=== PATIENT | female | born 1950 | race Caucasian/White ===

== ENCOUNTER 2018-02-07 05:51 | Day surgery (SDC) | payer MEDICARE ==
[2018-02-07] MEDS ORDERED: DIPRIVAN 200 MG/20 ML IV ONE (05:52)
[2018-02-07] MEDS ORDERED: Lactated Ringers 1,000 ML IV SCH (06:30)
[2018-02-07 08:41] VITALS: O2SAT 96
[2018-02-07 08:54] VITALS: PULSE 73
[2018-02-07 09:19] VITALS: BP 145/78
--- NOTE | 2018-02-07 13:09 | OP ---
SURGERY DATE/TIME: 02/07/2018 0751 PREOPERATIVE DIAGNOSIS: Right lower quadrant abdominal pain and cecal mass on CT scan. POSTOPERATIVE DIAGNOSIS: Cecal mass, two small polyps in the transverse colon and sigmoid diverticulosis. PROCEDURE: Colonoscopy with biopsy. SURGEON: Dr. Woody. ANESTHESIA: MAC. Medications given by anesthesia department. HISTORY: The patient is a 68 year-old white female presenting now for colonoscopic evaluation after having had complaints of right lower quadrant abdominal pain and CT scan concerning for mass in the cecum. The patient was felt the need to have endoscopic evaluation. She was appraised of the risks of the procedure including the risk of perforation, phlebitis, untoward reaction to medication, bleeding and missed lesions. The patient verbalized her understanding and desired to have the procedure performed. DESCRIPTION OF PROCEDURE: The patient was given the medications by the anesthesia department. She had continuous pulse oximetry, ECG monitoring, intermittent blood pressure monitoring and tidal CO2 monitoring during the examination. She was placed in the left lateral decubitus position. A digital rectal examination was performed and revealed normal anal sphincter tone and no masses. The flexible Olympus pediatric colonoscope was used to intubate the rectum. A view of the colon was developed sequentially to the cecum where a circumferential ulcerating mass was noted which was firm this is biopsied and is quite friable and easy to bleed. As the scope was withdrawn towards the transverse colon again, we noted two small polyps and these were biopsied in the usual cold biopsy technique to determine the nature of the lesions. There was also noted to be sigmoid diverticulosis in the colon. No other mucosal lesions being encountered the scope was removed from the patient who tolerated the procedure well and was sent back to OP recovery in good condition. The prep was noted to be fair to good.
== END 2018-02-07 09:15 | disposition home or self-care (01) ==
LOC: SDC 05:51
PROVIDERS: ATTEND Family Medicine
DX: K63.89 Other specified diseases of intestine (principal); K63.5 Polyp of colon; K57.32 Diverticulitis of large intestine without perforation or abscess without bleeding; I25.10 Atherosclerotic heart disease of native coronary artery without angina pectoris
CPT/HCPCS: 88305; J2704

== ENCOUNTER 2018-02-24 10:19 | Inpatient (IN) | payer MEDICARE ==
--- NOTE | 2018-02-21 12:25 | HP ---
DATE OF SURGERY: 02/24/2018 ANTICIPATED PROCEDURE: Right hemicolectomy. HISTORY OF PRESENT ILLNESS: Large cecal mass presents for hemicolectomy. PAST MEDICAL HISTORY: ALLERGIES: MORPHINE. MEDICATIONS: Baby aspirin, metoprolol, atorvastatin hydrochlorothiazide. PAST SURGICAL HISTORY: Cholecystectomy. Hysterectomy. SOCIAL HISTORY: One pack per day. ETOH negative. FAMILY HISTORY: Negative. PHYSICAL EXAMINATION: VITAL SIGNS: Normal. CHEST: Clear. COR: Regular. ABDOMEN: No palpable organomegaly or mass. IMPRESSION: Cecal mass, two polyps in the transverse colon, sigmoid diverticulosis on examination by Dr. Woody. Circumferentiated ulcerated mass which was firm. PLAN: Right hemicolectomy.
[~2018-02-24 10:19] MED LIST: ENTEREG 12 MG PO SCH; Lactated Ringers 1,000 ML IV ONE; MEFOXIN 2 GM PREMIX** 2 GM/50 ML ML IV SCH
[2018-02-24] MEDS ORDERED: MEFOXIN 2 GM PREMIX** 2 GM/50 ML ML IV ONE (10:40)
[2018-02-24] MEDS ORDERED: Lactated Ringers 1,000 ML IV ONE ×2 (10:41→18:18)
[2018-02-24] MEDS ORDERED: Lactated Ringers 1,000 ML IV SCH (11:00)
[2018-02-24 12:32] LABS: ABO TYPING A; Antibody Screen NEGATIVE (NEGATIVE); RH TYPING POSITIVE
[2018-02-24] MEDS ORDERED: DILAUDID 2 MG INJECTION ONE (19:16)
[2018-02-24] MEDS ORDERED: SUBLIMAZE 100 MCG/2 ML ONE (19:16)
[2018-02-24] MEDS ORDERED: DILAUDID 1 MG/1ML PCA ONE (19:51)
[2018-02-24] MEDS ORDERED: D5W/0.45NS W/ 20mEq KCl 1000 ML 1,000 ML IV ONE (20:06)
[2018-02-24] MEDS: D5W/0.45NS W/ 20mEq KCl 1000 ML 1,000 ML IV SCH (20:30)
[2018-02-24] MEDS: DILAUDID 1 MG/1ML PCA IV PRN (20:40)
[2018-02-24] MEDS ORDERED: TYLENOL 325 MG PO PRN (20:59)
[2018-02-24] MEDS ORDERED: Zofran 4 MG/2 ML VIAL IV PRN (21:00)
[2018-02-24 22:50] LABS: Appearance CLEAR (CLEAR); Bilirubin NEGATIVE (NEGATIVE); Blood 250 Ery/ul (0-5); Glucose NEGATIVE (NEGATIVE); Ketones SMALL (NEGATIVE); Leukocyte Esterase NEGATIVE (NEGATIVE); Nitrite NEGATIVE (NEGATIVE); Protein,Urine Dip TRACE (Negative); Specific Gravity 1.025 (1.005-1.025); Urobilinogen NORMAL mg/dL (0-1)
[2018-02-24 22:51] LABS: Bacteria FEW /HPF (NEGATIVE); Epithelial Cells MODERATE /HPF (FEW); Hyaline Casts 0-2 /LPF (0-2)
[2018-02-25 05:52] LABS: BASOPHIL % 0.1 % (0.0-0.4); Basophil (Absolute #) 0.02 (0-0.4); Eosinophil % 0.2 % (0.00-5.0); Eosinophil (Absolute #) 0.03 (0-0.5); Granulocyte Absolute (ANC) 12.56 (1.4-6.9); Granulocytes % 82.9 % (36.0-66.0); Hematocrit 31.7 % (35-47); Hemoglobin 9.9 gm/dl (12.0-16.0); Lymphocyte (Absolute #) 1.29 (1.0-4.6); Lymphocytes % 8.5 % (24.0-44.0); Mean Cell Volume 79.4 fl (78-100); Mean Corpuscular Hemoglobin 24.8 pg (26-32); Mean Corpuscular Hgb Concent. 31.2 g/dl (32-36); Mean Platelet Volume 9.6 fl (6-9.5); Monocyte (Absolute #) 1.25 (0.0-1.3); Monocytes % 8.3 % (0.0-12.0); Platelet Count 381 K/mm3 (150-450); Red Blood Count 3.99 M/mm3 (4.1-5.4); Red Cell Distribution Width 17.7 % (11.5-14.0); White Blood Count 15.2 K/mm3 (4.0-10.5)
[2018-02-25 06:12] LABS: ANION GAP 11.7 MEQ/L (5-15); BLOOD UREA NITROGEN 8 mg/dL (7-17); CHLORIDE 103 mmol/L (98-107); Calcium 8.9 mg/dL (8.4-10.2); Carbon Dioxide 26 mmol/L (22-30); Creatinine 1 0.84 mg/dL (0.52-1.04); Glucose 159 mg/dL (74-106); Potassium 4.1 mmol/L (3.5-5.1); SODIUM 137 mmol/L (137-145)
[2018-02-25] MEDS: D5W/0.45NS W/ 20mEq KCl 1000 ML 1,000 ML IV SCH ×2 (06:26→17:43)
[2018-02-25] MEDS ORDERED: PHARMACY DOSING REQUEST MC ONE ×2 (07:33→07:34)
[2018-02-25] MEDS ORDERED: MEFOXIN 1 Gm/ D5W 50 Ml** 1 G/50 ML ML IV ONE (07:38)
[2018-02-25] MEDS ORDERED: MEFOXIN 1 Gm/ D5W 50 Ml** 1 G/50 ML ML IV SCH ×2 (08:00→13:30)
--- NOTE | 2018-02-25 08:18 | OP ---
SURGERY DATE/TIME: 02/24/2018 171 PREOPERATIVE DIAGNOSIS: Cecal cancer. POSTOPERATIVE DIAGNOSIS: Cecal cancer eroding into the right lateral abdominal wall with major extension of about 4 inches. PROCEDURES: 1) Right hemicolectomy. 2) En bloc resection of 5 inch circular area of abdominal wall including peritoneum/preperitoneal fat, external and internal oblique muscles. SURGEON: Migule Clarke M.D. ANESTHESIA: General. COMPLICATIONS: None. ESTIMATED BLOOD LOSS: 300 cc. DRAINS: None. CONDITION: Stable. Primary anastomosis. INDICATION: The patient has biopsy-proven cancer of the right side. DESCRIPTION OF PROCEDURE: Taken to surgery. General anesthetic. Routine prep and drape. She is morbidly obese. She has had a previous midline incision for gallbladder disease. There were some adhesions and these were taken down. A right transverse incision being made and over to the right side with her asleep you could clearly feel the tumor. The tumor was avoided and at this time the fascia was taken around the tumor down through the retroperitoneal fat and taking the transversalis and internal oblique muscle. At this time the tumor was clear and the right colon was reflected. The duodenum was preserved. The retroperitoneum preserved. No suggestion of being in the plane with the ureter. The small bowel then mobilized caudad 4 inches down on the ileum. The area was picked up and taken with TARA just in the midline. Area was taken of the transverse colon. The omentum had been freed up. A formal right hemicolectomy was performed through the mesentery predominantly with LigaSure with the base pedicle double clamped and tied with suture #0 PDS. Specimen delivered off the field. It was subsequently opened. It was totally circumferential. It was large. It was thick. It was nearly the size of an orange and it was perforating out the lateral side wall into this musculature which was left intact on the specimen for pathology. Findings discussed with the family in the waiting room subsequently. The field was dry. The right lateral side wall residual fascia closed meticulously. The incisions broken up in thirds. The lateral third, the middle third was almost intact. The medial third was clearly intact best portion of the closure. Subcutaneous tissue generously irrigated. Skin closed with gianfranco. Sterile dressing applied. Abdominal binder applied. Findings discussed with family in the waiting room. Anastomosis had been TARA clipping off the two corners firing very nicely. No bleeding. Closed with a contour. Mesenteric defect closed with 3-0 PDS running. The anastomosis was in the midline but with the mobilization that had occurred it moved over to the right lateral wall at the end of the case. The small bowel was laid back in organized fashion and the omentum brought down. The patient tolerated the procedure satisfactorily. Approximately 300 cc blood loss.
[2018-02-25] MEDS ORDERED: FEVERALL 650 MG RC PRN (08:34)
[2018-02-25 08:55] LABS: Hematocrit 31.7 % (35-47); Hemoglobin 9.8 gm/dl (12.0-16.0); Mean Cell Volume 79.3 fl (78-100); Mean Corpuscular Hemoglobin 24.5 pg (26-32); Mean Corpuscular Hgb Concent. 30.9 g/dl (32-36); Mean Platelet Volume 9.5 fl (6-9.5); Platelet Count 392 K/mm3 (150-450); Red Cell Distribution Width 17.6 % (11.5-14.0); White Blood Count 13.9 K/mm3 (4.0-10.5)
--- NOTE | 2018-02-25 09:12 | HP ---
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 CONSULTANTS: Dr. Clarke. PROCEDURES: Right hemicolectomy. HISTORY OF PRESENT ILLNESS: The patient is a 68 year-old white female who had abnormal CT scan prompting a colonoscopy at which time cecal cancer was found with biopsy proven to be adenocarcinoma. The patient was brought into the hospital to have right hemicolectomy performed. PAST MEDICAL/SURGICAL HISTORY: Otherwise significant for hypertension and hyperlipidemia. PHYSICAL EXAMINATION: Revealed an obese white female in no obvious distress upon admission. Her vital signs on admission initially showed blood pressure to be 142/76, respiratory rate 18, heart rate 78. O2 saturation 96%. HEENT: Normocephalic, atraumatic. Pupils equal round reactive to light. Extraocular movements intact. Oropharynx is pink and moist. NECK: Supple without lymphadenopathy, thyromegaly or JVD. CHEST: Clear to auscultation. HEART: Regular rate and rhythm without murmurs, rubs or gallops. ABDOMEN: Soft. No palpable masses were felt. EXTREMITIES: Without clubbing, cyanosis or edema. NEUROLOGIC: The patient is alert and oriented x3. LAB DATA AND TESTS: The patient had a Cardiolite stress test prior to the evaluation most recently performed on 06/19/2016 showing no evidence of pharmacologic induced reversible ischemia and ejection fraction of 67%. The patient did receive cardiology clearance for the procedure. She was noted to be A-positive on her blood type. Her metabolic panel showed a fasting sugar of 107, BUN 16, creatinine 0.88. The electrolytes were normal. Her hemoglobin was noted to be low at 9.6. Her white blood cell count 10,600. Her PLT count was normal at 393,000. ASSESSMENT: A patient with colon cancer presenting now for hemicolectomy to be performed. We have been asked to follow the patient medically after her procedure.
[2018-02-25 09:29] LABS: ALBUMIN 3.3 g/dL (3.5-5.0); ALKALINE PHOSPHATASE 56 U/L (38-126); ANION GAP 10.4 MEQ/L (5-15); BLOOD UREA NITROGEN 8 mg/dL (7-17); CHLORIDE 105 mmol/L (98-107); Calcium 8.7 mg/dL (8.4-10.2); Carbon Dioxide 27 mmol/L (22-30); Glucose 152 mg/dL (74-106); Potassium 4.2 mmol/L (3.5-5.1); SGOT/AST 34 U/L (14-36); SGPT/ALT 9 U/L (0-35); SODIUM 138 mmol/L (137-145); Total Protein 6.4 g/dL (6.3-8.2)
[2018-02-25] MEDS: ENTEREG 12 MG PO SCH ×2 (11:11→22:58)
[2018-02-25] MEDS: LOPRESSOR 5 MG/5 ML INJECTION IV SCH ×2 (11:12→22:43)
[2018-02-25] MEDS: ENOXAPARIN SODIUM SQ SCH (11:14)
[2018-02-25] MEDS ORDERED: Zofran 4 MG/2 ML VIAL IV ONE (12:21)
[2018-02-25] MEDS ORDERED: DIPRIVAN 200 MG/20 ML IV ONE (12:21)
[2018-02-25] MEDS ORDERED: Zemuron 100 MG/10 ML IJ ONE (12:21)
[2018-02-25] MEDS ORDERED: BRIDION 200MG/2ML IV ONE (12:21)
[2018-02-25] MEDS ORDERED: Versed 2 MG/2 ML Injection IV ONE (12:28)
[2018-02-25] MEDS ORDERED: SUBLIMAZE 100 MCG/2 ML IV ONE (12:28)
[2018-02-25] MEDS ORDERED: SUBLIMAZE 250 MCG/5 ML IJ ONE (12:28)
[2018-02-25] MEDS: MEFOXIN 1 Gm/ D5W 50 Ml** 1 G/50 ML ML IV SCH ×2 (13:11→18:38)
[2018-02-25] MEDS: INTRALIPID 20% 250 ML 250 ML, TPN Electrolytes 40 ML, Multitrace-4 Conc Vial 1 ML*** 1 ... IV SCH ×5 (14:44)
[2018-02-25] MEDS: DILAUDID 1 MG/1ML PCA IV PRN (18:28)
[2018-02-26] MEDS: D5W/0.45NS W/ 20mEq KCl 1000 ML 1,000 ML IV SCH (04:57)
[2018-02-26 06:36] LABS: ALKALINE PHOSPHATASE 51 U/L (38-126); ANION GAP 11.9 MEQ/L (5-15); BLOOD UREA NITROGEN 9 mg/dL (7-17); CHLORIDE 103 mmol/L (98-107); Calcium 8.7 mg/dL (8.4-10.2); Carbon Dioxide 26 mmol/L (22-30); Creatinine 1 0.65 mg/dL (0.52-1.04); Glucose 166 mg/dL (74-106); SGOT/AST 23 U/L (14-36); SGPT/ALT 9 U/L (0-35); SODIUM 137 mmol/L (137-145); Total Protein 5.9 g/dL (6.3-8.2)
[2018-02-26 06:45] LABS: Granulocyte Absolute (ANC) 12.99 (1.4-6.9); Hematocrit 28.2 % (35-47); Hemoglobin 8.6 gm/dl (12.0-16.0); Mean Cell Volume 79.7 fl (78-100); Mean Corpuscular Hgb Concent. 30.5 g/dl (32-36); Mean Platelet Volume 9.6 fl (6-9.5); Platelet Count 359 K/mm3 (150-450); Red Blood Count 3.54 M/mm3 (4.1-5.4); Red Cell Distribution Width 17.4 % (11.5-14.0); White Blood Count 16.9 K/mm3 (4.0-10.5)
[2018-02-26 06:52] LABS: Mean Corpuscular Hemoglobin 24.2 pg (26-32)
[2018-02-26] MEDS: PROTONIX 40 MG IV IV SCH (11:11)
[2018-02-26] MEDS: LOPRESSOR 5 MG/5 ML INJECTION IV SCH ×2 (11:11→22:31)
[2018-02-26] MEDS: ENTEREG 12 MG PO SCH ×2 (11:12→22:32)
[2018-02-26] MEDS: ENOXAPARIN SODIUM SQ SCH (11:12)
[2018-02-26 11:28] LABS: Lymphocytes 26 % (24-44); Monocyte 2 % (0.0-12.0); Neutrophils 72 % (36.0-66.0); Total Cells Counted 100
[2018-02-26 11:29] LABS: ANISOCYTOSIS 2+; Platelet Estimate NORMAL (NORMAL); Poikilocytosis 2+; Polychromasia 1+
[2018-02-26] MEDS ORDERED: NARCAN 2 MG/2 ML IV PRN (12:26)
[2018-02-26] MEDS: Sodium Chloride 0.9% 500 ML 500 ML IV SCH (12:35)
[2018-02-26] MEDS: INTRALIPID 20% 250 ML 250 ML, TPN Electrolytes 40 ML, Multitrace-4 Conc Vial 1 ML*** 1 ... IV SCH ×5 (14:30)
[2018-02-27] MEDS: DILAUDID 1 MG/1ML PCA IV PRN (03:55)
--- NOTE | 2018-02-27 09:39 | PCM.NOTE ---
Date and Time: 02/26/18 1233 Subjective Assessment: late entry seen 02/27/18 at 12:00 she was starting to feel better her main complaint was the ng making it hard to move. pain was controlled with floor renovator and she was starting to ambulate no flatulance Objective Exam General Appearance: obese Neurologic Exam: alert, oriented x 3, cooperative Skin Exam: warm, dry, pale Eye Exam: pale conjunctivae Ears, Nose, Throat Exam: moist mucous membranes Neck Exam: non-tender, supple Respiratory Exam: lungs clear Cardiovascular Exam: normal heart sounds Gastrointestinal/Abdomen Exam: soft, tenderness OBJECTIVE DATA Vital Signs: Vital Signs - 24 hr Temp Pulse Resp BP Pulse Ox 02/27/18 08:00 97.8 F 80 18 131/63 94 L 02/27/18 04:00 98.7 F 82 17 123/61 92 L 02/27/18 03:55 92 L 02/27/18 02:00 92 L 02/26/18 23:45 98.5 F 87 17 134/57 92 L 02/26/18 22:00 94 L 02/26/18 20:14 94 H 18 93 L 02/26/18 20:00 98.7 F 90 17 140/67 94 L 02/26/18 16:00 98.3 F 83 18 149/71 94 L 02/26/18 12:00 97.9 F 78 18 133/64 94 L 02/26/18 09:45 77 22 95 Pain Assessment - Last Documented Pain Intensity 3 Pain Scale Used 0-10 Pain Scale Intake and Output: Intake & Output 02/24/18 02/25/18 02/26/18 02/27/18 11:59 11:59 11:59 11:59 Intake Total 877 2938 2762 Output Total 530 2050 1150 Balance 040 813 1200 Weight 108 kg 110 kg Lab Results: Lab Results-Last 24 Hours 02/26/18 Range/Units 06:00 Segmented Neutrophils 72 H (36.0-66.0) % Lymphocytes (Manual) 26 (24-44) % Monocytes (Manual) 2 (0.0-12.0) % Platelet Estimate NORMAL (NORMAL) RBC Morphology ABNORMAL Polychromasia 1+ Poikilocytosis 2+ Anisocytosis 2+ Assessment/Plan (1) Colon cancer Current Visit: Yes Status: Acute Qualifiers: Colon location: ascending Qualified Code(s): C18.2 - Malignant neoplasm of ascending colon Assessment & Plan: biopsy proven cecal mass adenocarcinoma surgical pathology pending with Dr. Clarke post op day 2 right hemicolectomy MERLINE bang with PPN pharmacy dosing diet per surgery floor renovator pain control and lovenox for dvt ppx ambulate in hallway discussed (2) S/P right hemicolectomy Current Visit: Yes Status: Acute Code(s): Z90.49 - ACQUIRED ABSENCE OF OTHER SPECIFIED PARTS OF DIGESTIVE TRACT (3) Essential hypertension Current Visit: Yes Status: Chronic Code(s): I10 - ESSENTIAL (PRIMARY) HYPERTENSION (4) Hyperlipidemia Current Visit: Yes Status: Chronic Code(s): E78.5 - HYPERLIPIDEMIA, UNSPECIFIED (5) Obesity Current Visit: Yes Status: Chronic Code(s): E66.9 - OBESITY, UNSPECIFIED
--- NOTE | 2018-02-27 09:40 | PCM.NOTE ---
Date and Time: 02/27/18 0939 Subjective Assessment: post op day 3 was feeling well yesterday but today the NG is really bothering her causing her pain in her nose and gagging with swallowing having some intermittent stabbing pain in the abdomen with no passing of flatulence yet. Objective Exam General Appearance: obese Neurologic Exam: alert, oriented x 3, cooperative Skin Exam: warm, dry, pale Eye Exam: pale conjunctivae, No scleral icterus Ears, Nose, Throat Exam: moist mucous membranes, other (NG left nare) Neck Exam: non-tender, supple Respiratory Exam: lungs clear Cardiovascular Exam: regular rate/rhythm, normal heart sounds, No edema Gastrointestinal/Abdomen Exam: soft, tenderness, distention, No normal bowel sounds (hypoactive bowel sounds) Extremity Exam: No calf tenderness, No pedal edema OBJECTIVE DATA Vital Signs: Vital Signs - 24 hr Temp Pulse Resp BP Pulse Ox 02/27/18 08:00 97.8 F 80 18 131/63 94 L 02/27/18 04:00 98.7 F 82 17 123/61 92 L 02/27/18 03:55 92 L 02/27/18 02:00 92 L 02/26/18 23:45 98.5 F 87 17 134/57 92 L 02/26/18 22:00 94 L 02/26/18 20:14 94 H 18 93 L 02/26/18 20:00 98.7 F 90 17 140/67 94 L 02/26/18 16:00 98.3 F 83 18 149/71 94 L 02/26/18 12:00 97.9 F 78 18 133/64 94 L 02/26/18 09:45 77 22 95 Pain Assessment - Last Documented Pain Intensity 3 Pain Scale Used 0-10 Pain Scale Intake and Output: Intake & Output 02/24/18 02/25/18 02/26/18 02/27/18 11:59 11:59 11:59 11:59 Intake Total 871 2938 2762 Output Total 666 2050 1150 Balance 138 932 6052 Weight 108 kg 110 kg Lab Results: Lab Results-Last 24 Hours 02/26/18 Range/Units 06:00 Segmented Neutrophils 72 H (36.0-66.0) % Lymphocytes (Manual) 26 (24-44) % Monocytes (Manual) 2 (0.0-12.0) % Platelet Estimate NORMAL (NORMAL) RBC Morphology ABNORMAL Polychromasia 1+ Poikilocytosis 2+ Anisocytosis 2+ Assessment/Plan (1) Colon cancer Current Visit: Yes Status: Acute Qualifiers: Colon location: ascending Qualified Code(s): C18.2 - Malignant neoplasm of ascending colon Assessment & Plan: biopsy proven cecal mass adenocarcinoma surgical pathology pending with Dr. 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
[2018-02-27] MEDS: PROTONIX 40 MG IV IV SCH (10:27)
[2018-02-27] MEDS: ENTEREG 12 MG PO SCH ×2 (10:27→22:24)
[2018-02-27] MEDS: ENOXAPARIN SODIUM SQ SCH (10:27)
[2018-02-27] MEDS: LOPRESSOR 5 MG/5 ML INJECTION IV SCH ×2 (10:27→22:25)
[2018-02-27] MEDS: Sodium Chloride 0.9% 500 ML 500 ML IV SCH (13:01)
[2018-02-27] MEDS: INTRALIPID 20% 250 ML 250 ML, TPN Electrolytes 40 ML, Multitrace-4 Conc Vial 1 ML*** 1 ... IV SCH ×5 (14:30)
[2018-02-28 06:06] LABS: Granulocyte Absolute (ANC) 9.46 (1.4-6.9); Hematocrit 28.5 % (35-47); Hemoglobin 8.9 gm/dl (12.0-16.0); Mean Cell Volume 78.9 fl (78-100); Mean Corpuscular Hgb Concent. 31.2 g/dl (32-36); Mean Platelet Volume 9.4 fl (6-9.5); Platelet Count 369 K/mm3 (150-450); Red Blood Count 3.61 M/mm3 (4.1-5.4); Red Cell Distribution Width 17.8 % (11.5-14.0); White Blood Count 13.1 K/mm3 (4.0-10.5)
[2018-02-28 06:25] LABS: Mean Corpuscular Hemoglobin 24.6 pg (26-32)
[2018-02-28 06:28] LABS: ALBUMIN 3.1 g/dL (3.5-5.0); ANION GAP 9.2 MEQ/L (5-15); BLOOD UREA NITROGEN 14 mg/dL (7-17); CHLORIDE 104 mmol/L (98-107); Calcium 8.8 mg/dL (8.4-10.2); Carbon Dioxide 27 mmol/L (22-30); Creatinine 1 0.64 mg/dL (0.52-1.04); Glucose 134 mg/dL (74-106); Potassium 3.8 mmol/L (3.5-5.1); SODIUM 136 mmol/L (137-145); Total Protein 6.1 g/dL (6.3-8.2)
[2018-02-28 08:23] LABS: BAND 1 % (0.0-2.0); Eosinophil 2 % (0.00-3.0); Lymphocytes 8 % (24-44); Monocyte 4 % (0.0-12.0); Neutrophils 85 % (36.0-66.0); Total Cells Counted 100
[2018-02-28 08:24] LABS: ANISOCYTOSIS 1+; Platelet Estimate NORMAL (NORMAL); Polychromasia RARE
[2018-02-28] MEDS: ENTEREG 12 MG PO SCH ×2 (09:55→21:02)
[2018-02-28] MEDS: LOPRESSOR 5 MG/5 ML INJECTION IV SCH ×2 (09:55→21:06)
[2018-02-28] MEDS: PROTONIX 40 MG IV IV SCH (09:56)
[2018-02-28] MEDS: ENOXAPARIN SODIUM SQ SCH (09:56)
[2018-02-28] MEDS: Sodium Chloride 0.9% 500 ML 500 ML IV SCH (13:41)
--- NOTE | 2018-02-28 13:46 | XRAY ---
Indication: History of colon cancer. Poor venous access. Long-term IV access and therapy. Informed consent obtained. Patient was placed on the fluoroscopic table in a supine position. Initial sonographic imaging of the right upper extremity was performed for localization of patent veins. The right upper extremity was then prepped and draped in sterile fashion. Tourniquet applied. 1% lidocaine plain used for local anesthesia. Using ultrasound guidance and a micropuncture needle, a basilic vein above the elbow was successfully percutaneously cannulized. A floppy tip 0.018 guidewire inserted. Tourniquet released. Needle was exchanged for a 5 Syriac dilator peel-away sheath catheter. Ultimately a 5 Syriac double-lumen PICC line was inserted over a longer 0.018 guidewire with the tip positioned in the SVC using fluoroscopic guidance. Guidewire removed. Both ports flushed with heparinized saline. Catheter was secured. Postoperative instructions and orders given. Patient discharged in good condition. Impression: Technically successful right upper extremity PICC line placement using ultrasound and fluoroscopic guidance. No immediate complications. Approximately 2 cc blood loss. Approximately 0.2 minute of fluoroscopy used. Catheter length is 42.5 cm.
--- NOTE | 2018-02-28 13:49 | XRAY ---
Indication: Ultrasound guidance for PICC line placement. Initial sonographic imaging of the right upper extremity was performed for localization of patent veins. A patent basilic vein identified above the elbow. Ultrasound guidance was then used for PICC line insertion. Full PICC line insertion is reported separately.
--- NOTE | 2018-02-28 13:56 | PCM.NOTE ---
Date and Time: 02/28/18 1349 Subjective Assessment: feeling much better today with NG out she has not tried any liquids yet. Dr. Ruffin rounded today and advanced her diet she has no nausea no flatulance no bm pain with moving in rlq Objective Exam General Appearance: no apparent distress, alert, obese Neurologic Exam: alert, oriented x 3, cooperative, normal mood/affect, nml cerebellar function, sensation nml, No motor deficits Skin Exam: normal color, warm, dry Eye Exam: PERRL, EOMI, eyes nml inspection Ears, Nose, Throat Exam: normal ENT inspection, pharynx normal, moist mucous membranes Neck Exam: normal inspection, non-tender, supple, full range of motion Respiratory Exam: normal breath sounds, lungs clear, No respiratory distress Cardiovascular Exam: regular rate/rhythm, normal heart sounds Gastrointestinal/Abdomen Exam: tenderness, mass, other (hypoactive bowel sounds) , No normal bowel sounds Extremity Exam: normal inspection, normal range of motion Back Exam: normal inspection, normal range of motion, No CVA tenderness, No vertebral tenderness Pelvic Exam: deferred Rectal Exam: deferred OBJECTIVE DATA Vital Signs: Vital Signs - 24 hr Temp Pulse Resp BP Pulse Ox 02/28/18 12:00 97 02/28/18 11:46 98.2 F 67 18 137/67 97 02/28/18 08:00 95 02/28/18 07:35 98.3 F 69 18 115/59 95 02/28/18 04:00 97.8 F 78 20 138/70 96 02/28/18 00:00 95 02/27/18 23:40 98.0 F 78 18 149/66 95 02/27/18 20:00 96 02/27/18 19:59 88 18 94 L 02/27/18 19:48 98.0 F 76 17 119/74 96 02/27/18 16:00 98.4 F 68 18 138/64 94 L Pain Assessment - Last Documented Pain Intensity 2 Pain Scale Used 0-10 Pain Scale Intake and Output: Intake & Output 02/26/18 02/27/18 02/28/18 03/01/18 11:59 11:59 11:59 11:59 Intake Total 2931 9262 2442 Output Total 2050 1150 1350 Balance 888 1612 1092 Weight 110 kg 119.5 kg 119.5 kg Lab Results: Lab Results-Last 24 Hours 02/28/18 02/28/18 02/28/18 Range/Units 05:00 05:00 05:30 WBC 13.1 H (4.0-10.5) K/mm3 RBC 3.61 L (4.1-5.4) M/mm3 Hgb 8.9 L (12.0-16.0) gm/dl Hct 28.5 L (35-47) % MCV 78.9 (78-100) fl MCH 24.6 L (26-32) pg MCHC 31.2 L (32-36) g/dl RDW 17.8 H (11.5-14.0) % Plt Count 369 (150-450) K/mm3 MPV 9.4 (6-9.5) fl Absolute Granulocytes 9.46 H (1.4-6.9) Segmented Neutrophils 85 H (36.0-66.0) % Band Neutrophils 1 (0.0-2.0) % Lymphocytes (Manual) 8 L (24-44) % Monocytes (Manual) 4 (0.0-12.0) % Eosinophils (Manual) 2 (0.00-3.0) % Platelet Estimate NORMAL (NORMAL) RBC Morphology ABNORMAL Polychromasia RARE Anisocytosis 1+ APTT 23.6 L (25.3-37.0) SECONDS Sodium 136 L (137-145) mmol/L Potassium 3.8 (3.5-5.1) mmol/L Chloride 104 (98-107) mmol/L Carbon Dioxide 27 (22-30) mmol/L Anion Gap 9.2 (5-15) MEQ/L BUN 14 (7-17) mg/dL Creatinine 0.64 (0.52-1.04) mg/dL Estimated GFR > 60.0 ML/MIN Glucose 134 H (74-106) mg/dL Calcium 8.8 (8.4-10.2) mg/dL Magnesium 2.1 (1.6-2.3) mg/dL Serum Total Protein 6.1 L (6.3-8.2) g/dL Albumin 3.1 L (3.5-5.0) g/dL Radiology Exams: Radiology Procedures Category Date Time Status GUIDE FOR VASCULAR ACCESS [US] Routine Exams 02/28/18 12:14 Completed PICC LINE PLACEMENT Urgent Exams 02/28/18 08:49 Completed Multi-Disciplinary Progress Notes: Multi-Disciplinary Progress Notes 02/28/18 13:06 Nutrition Note by Nellie Villar F/u Note: PPN con't @ 60cc/hour. Note also receiving a clear liquid diet; no intake noted. Labs 02/28 = glu 134, Na 136, alb 3.1, hgb 8.9, hct 28.5. Weight on adm 108 kg; 02/28 119.5 kg. + fluid balance 1092 mls. Recommend to con't with PPN and increase diet as patient tolerates. Will monitor and f/u prn. AMBIKA Pak Initialized on 02/28/18 13:06 - END OF NOTE 02/28/18 09:00 (created 02/28/18 10:35) Case Management Note by Noreen Waters REVIEWED DISCHARGE PLAN, CONTINUES TO PLAN FOR RETURN HOME TO PRE EPISODIC LEVEL OF [facility]. DENIES ADDNL NEEDS AT PRESENT. DID DISCUSS AND ENCOURAGE HHC SERVICES ON DISCHARGE. WILL FOLLOW FOR ALL DC NEEDS. Initialized on 02/28/18 10:35 - END OF NOTE Assessment/Plan (1) Colon cancer Current Visit: Yes Status: Acute Qualifiers: Colon location: ascending Qualified Code(s): C18.2 - Malignant neoplasm of ascending colon Assessment & Plan: biopsy proven cecal mass adenocarcinoma surgical pathology pending with Dr. 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
[2018-02-28] MEDS ORDERED: Heparin 1000 units/ml (10 Ml vial) 1,000 U in Sodium Chloride 0.9% 500 ML 500 ML IV ONE (16:22)
[2018-02-28] MEDS: NORCO 5/325 MG PO PRN (21:01)
[2018-03-01] MEDS: Sodium Chloride 0.9% 500 ML 500 ML IV SCH (06:04)
[2018-03-01] MEDS: ENOXAPARIN SODIUM SQ SCH (10:02)
[2018-03-01] MEDS: PROTONIX 40 MG IV IV SCH (10:03)
[2018-03-01] MEDS: ENTEREG 12 MG PO SCH (10:03)
[2018-03-01] MEDS: LOPRESSOR 5 MG/5 ML INJECTION IV SCH (10:03)
--- NOTE | 2018-03-01 12:36 | PCM.NOTE ---
Date and Time: 03/01/18 1234 Subjective Assessment: feeling better denny had 3 bm small amount eating some not hungry now having intermittent gas pains sharp throughout abdomen ambulating on her own in the room Objective Exam General Appearance: no apparent distress, alert, obese Neurologic Exam: alert, oriented x 3, cooperative, normal mood/affect Skin Exam: normal color, warm, dry Eye Exam: PERRL, EOMI, eyes nml inspection Ears, Nose, Throat Exam: normal ENT inspection, pharynx normal, moist mucous membranes Neck Exam: normal inspection, non-tender, supple, full range of motion Respiratory Exam: normal breath sounds, lungs clear, No respiratory distress Cardiovascular Exam: regular rate/rhythm, normal heart sounds Gastrointestinal/Abdomen Exam: soft (abdominal binder in place), normal bowel sounds, tenderness Pelvic Exam: deferred Rectal Exam: deferred OBJECTIVE DATA Vital Signs: Vital Signs - 24 hr Temp Pulse Resp BP Pulse Ox 03/01/18 11:49 98.0 F 93 H 18 125/87 99 03/01/18 06:56 97.5 F 62 18 125/63 99 03/01/18 04:00 97.9 F 71 20 148/78 97 03/01/18 00:00 97.4 F 68 22 122/69 96 02/28/18 19:41 69 18 94 L 02/28/18 19:32 97.8 F 71 20 140/63 97 02/28/18 18:30 96 02/28/18 16:00 98.3 F 71 18 159/69 96 Pain Assessment - Last Documented Pain Intensity 2 Pain Scale Used 0-10 Pain Scale Intake and Output: Intake & Output 02/27/18 02/28/18 03/01/18 03/02/18 11:59 11:59 11:59 11:59 Intake Total 2762 2442 1198 Output Total 1150 1350 1700 Balance 1612 1092 -502 Weight 119.5 kg 119.5 kg 115.6 kg Radiology Exams: Radiology Procedures Category Date Time Status GUIDE FOR VASCULAR ACCESS [US] Routine Exams 02/28/18 12:14 Completed PICC LINE PLACEMENT Urgent Exams 02/28/18 08:49 Completed Multi-Disciplinary Progress Notes: Multi-Disciplinary Progress Notes 02/28/18 13:06 Nutrition Note by Nellie Villar F/u Note: PPN con't @ 60cc/hour. Note also receiving a clear liquid diet; no intake noted. Labs 02/28 = glu 134, Na 136, alb 3.1, hgb 8.9, hct 28.5. Weight on adm 108 kg; 02/28 119.5 kg. + fluid balance 1092 mls. Recommend to con't with PPN and increase diet as patient tolerates. Will monitor and f/u prn. AMBIKA Pak Initialized on 02/28/18 13:06 - END OF NOTE Assessment/Plan (1) Colon cancer Current Visit: Yes Status: Acute Onset Date: ~02/24/18 Qualifiers: Colon location: ascending Qualified Code(s): C18.2 - Malignant neoplasm of ascending colon Assessment & Plan: biopsy proven cecal mass adenocarcinoma surgical pathology pending with Dr. 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 and lovenox for dvt ppx ambulate in hallway discussed disposition per surgery recommendations (2) S/P right hemicolectomy Current Visit: Yes Status: Acute Onset Date: ~02/24/18 Code(s): Z90.49 - ACQUIRED ABSENCE OF OTHER SPECIFIED PARTS OF DIGESTIVE TRACT (3) Essential hypertension Current Visit: Yes Status: Chronic Onset Date: ~02/24/18 Code(s): I10 - ESSENTIAL (PRIMARY) HYPERTENSION (4) Hyperlipidemia Current Visit: Yes Status: Chronic Onset Date: ~02/24/18 Code(s): E78.5 - HYPERLIPIDEMIA, UNSPECIFIED (5) Obesity Current Visit: Yes Status: Chronic Onset Date: ~02/24/18 Code(s): E66.9 - OBESITY, UNSPECIFIED
[2018-03-01] MEDS: NORCO 5/325 MG PO PRN (12:42)
[2018-03-01 16:08] VITALS: BP 112/78; PULSE 63; O2SAT 97
== END 2018-03-01 18:12 | disposition home or self-care (01) | DRG 376 ==
LOC: MED SURG 10:19 → EDSTATUS 10:40 → ICU 20:28 → MED SURG 02-25 13:30
PROVIDERS: ADMIT Surgery; ATTEND Surgery
DX: C18.2 Malignant neoplasm of ascending colon (principal); I10 Essential (primary) hypertension; E78.5 Hyperlipidemia, unspecified; Z90.49 Acquired absence of other specified parts of digestive tract; E66.9 Obesity, unspecified
CPT/HCPCS: 36415; 36569; 64488; 76937; 76942; 77001; 80048; 80053; 81000; 82040; 83735; 84155; 85025; 85027; 85730; 86340; 86850; 86900; 86901; 87086; 88341; 88342; 94250; 94760; C1769; J0694; J1170; J1642; J1644; J1650; J2250; J2405; J2704; J3010; L0625; A9270-GY

== ENCOUNTER 2018-03-31 07:59 | Day surgery (SDC) | payer MEDICARE ==
--- NOTE | 2018-03-29 11:21 | HP ---
DATE OF SURGERY: 03/31/2018 ANTICIPATED PROCEDURE: Port placement. HISTORY OF PRESENT ILLNESS: A patient requiring access for chemotherapy for colon cancer and presents for port. PAST MEDICAL HISTORY: ALLERGIES: MORPHINE. MEDICATIONS: Aspirin, metoprolol, atorvastatin. PAST SURGICAL HISTORY: Cholecystectomy, hysterectomy. SOCIAL HISTORY: One pack per day. ETOH negative. FAMILY HISTORY: Negative. PHYSICAL EXAMINATION: VITAL SIGNS: Normal. CHEST: Clear. COR: Regular. ABDOMEN: Satisfactory. IMPRESSION: The patient had recent colon resection requiring chemotherapy access. PLAN: Port placement.
[~2018-03-31 07:59] MED LIST changes: -ENTEREG 12 MG PO SCH; -Lactated Ringers 1,000 ML IV ONE; +Lactated Ringers 1,000 ML IV SCH; -MEFOXIN 2 GM PREMIX** 2 GM/50 ML ML IV SCH; +XYLOCAINE 1% HCL 20 ML MDV ONE
[2018-03-31] MEDS ORDERED: SUBLIMAZE 100 MCG/2 ML IV ONE (08:00)
[2018-03-31] MEDS ORDERED: DIPRIVAN 200 MG/20 ML IV ONE (08:00)
[2018-03-31] MEDS ORDERED: Versed 2 MG/2 ML Injection IV ONE (08:00)
[2018-03-31] MEDS ORDERED: Lactated Ringers 0 ML IV ONE (08:15)
[2018-03-31] MEDS ORDERED: CEFAZOLIN 2 GM-D5W BAG** 2 GM/50 ML ML IV SCH (08:30)
--- NOTE | 2018-03-31 13:13 | OP ---
SURGERY DATE/TIME: 03/31/2018 1139 PREOPERATIVE DIAGNOSIS: Inadequate access for chemotherapy. POSTOPERATIVE DIAGNOSIS: Inadequate access for chemotherapy. PROCEDURE: Left tunnel Port-A-Cath superior vena cava-atrial junction with no pneumothorax. SURGEON: Miguel Clarke M.D. [employer]EE F[employer]ER: Medical Student III. ANESTHESIA: MAC. COMPLICATIONS: None. CONDITION: Stable. INDICATION: A patient requiring access. DESCRIPTION OF PROCEDURE: Routine prep and drape. Venipuncture first puncture. Catheter is placed 22 cm. Good aspiration of low pressure venous blood. Flushed with heparinized saline. Secured with 3-0 Prolene, 3-0 Vicryl, 4-0 Vicryl and Steri-Strips. Fluoro image satisfactory, ready to use. The patient tolerated the procedure satisfactorily. Findings discussed with the family in the waiting room.
--- NOTE | 2018-03-31 15:18 | XRAY ---
4 Seconds fluoroscopy time in surgery for port placement. No images were saved.
[2018-03-31 15:37] VITALS: O2SAT 94
[2018-03-31 15:43] VITALS: BP 118/75; PULSE 72
== END 2018-03-31 13:55 | disposition home or self-care (01) ==
LOC: SDC 07:59
PROVIDERS: ATTEND Surgery
PROC: 02HV33Z Insertion of Infusion Device into Superior Vena Cava, Percutaneous Approach (ICD-10-PCS; principal; 2018-03-31)
DX: C18.9 Malignant neoplasm of colon, unspecified (principal)
CPT/HCPCS: 77001; 94250; C1788; J0690; J1642; J2250; J2704; J3010

== ENCOUNTER 2018-04-20 03:12 | Observation (INO) | payer MEDICARE ==
[~2018-04-20 03:12] MED LIST changes: +Hydromorphone 1 mg/ml Ampule; -Lactated Ringers 1,000 ML IV SCH; +Sodium Chloride 0.9% 1000 ML 1,000 ML; -XYLOCAINE 1% HCL 20 ML MDV ONE
[2018-04-20 04:42] LABS: PTT 26.6 SECONDS (25.3-37.0)
[2018-04-20 04:42] LABS: INR 1.03 (0.8-3.0)
[2018-04-20 04:43] LABS: D-DIMER QUANTITATION 1302 ng/mL (215-500)
[2018-04-20 04:44] LABS: ALBUMIN 3.9 g/dL (3.5-5.0); ALKALINE PHOSPHATASE 105 U/L (38-126); BLOOD UREA NITROGEN 22 mg/dL (7-17); CHLORIDE 108 mmol/L (98-107); CK-Creatinine Phosphokinase 39 U/L (30-135); Calcium 9.6 mg/dL (8.4-10.2); Carbon Dioxide 25 mmol/L (22-30); Creatinine 1 0.98 mg/dL (0.52-1.04); EST GLOMERULAR FILTRATION RATE 59.8 ML/MIN; Glucose 96 mg/dL (74-106); MAGNESIUM 1.8 mg/dL (1.6-2.3); NT PRO BNP 289 pg/mL (0-900); Potassium 3.9 mmol/L (3.5-5.1); SGOT/AST 18 U/L (14-36); SGPT/ALT 10 U/L (0-35); SODIUM 141 mmol/L (137-145); TROPONIN < 0.012 ng/mL (0.000-0.034); Total Protein 6.8 g/dL (6.3-8.2)
[2018-04-20 04:45] LABS: ANION GAP 11.9 MEQ/L (5-15)
[2018-04-20 05:04] LABS: ADD MANUAL DIFF? YES (NO); BASOPHIL % 0.4 % (0.0-0.4); Basophil (Absolute #) 0.05 (0-0.4); Eosinophil % 2.4 % (0.00-5.0); Eosinophil (Absolute #) 0.34 (0-0.5); Granulocyte Absolute (ANC) 7.94 (1.4-6.9); Hematocrit 33.7 % (35-47); Hemoglobin 10.6 gm/dl (12.0-16.0); Lymphocyte (Absolute #) 3.13 (1.0-4.6); Lymphocytes % 22.5 % (24.0-44.0); Mean Cell Volume 83.6 fl (78-100); Mean Corpuscular Hemoglobin 26.3 pg (26-32); Mean Corpuscular Hgb Concent. 31.5 g/dl (32-36); Mean Platelet Volume 10.1 fl (6-9.5); Monocyte (Absolute #) 2.46 (0.0-1.3); Monocytes % 17.7 % (0.0-12.0); Platelet Count 217 K/mm3 (150-450); Red Blood Count 4.03 M/mm3 (4.1-5.4); Red Cell Distribution Width 20.7 % (11.5-14.0); White Blood Count 13.9 K/mm3 (4.0-10.5)
[2018-04-20] MEDS ORDERED: Senokot-S Tablet PO (06:51)
[2018-04-20] MEDS ORDERED: Zofran 4 MG/2 ML VIAL IV (06:51)
[2018-04-20] MEDS ORDERED: MILK OF MAGNESIA 30 ML PO (06:51)
[2018-04-20] MEDS ORDERED: MAALOX ES 30 ML UNIT DOSE PO (06:51)
[2018-04-20] MEDS ORDERED: TYLENOL 325 MG PO (06:51)
[2018-04-20] MEDS ORDERED: Sodium Chloride 0.9% 10 ML FLUSH Syringe IV (10:08)
[2018-04-20 10:14] LABS: LIPASE 139 U/L (23-300)
[2018-04-20 10:14] LABS: AMYLASE 51 U/L (30-110)
[2018-04-20] MEDS: NITRO-BID 2% UD PACKETS TOP ×2 (10:14→22:54)
[2018-04-20] MEDS: PROTONIX 40 MG IV IV (10:14)
[2018-04-20] MEDS: Ecotrin 325 MG PO (10:15)
[2018-04-20 10:28] LABS: TROPONIN < 0.012 ng/mL (0.000-0.034)
[2018-04-20] MEDS ORDERED: ONDANSETRON HCL PO (12:57)
[2018-04-20] MEDS ORDERED: ZOFRAN ODT 4 MG PO (13:04)
[2018-04-20] MEDS: FEOSOL 325 MG PO ×2 (14:04→22:21)
[2018-04-20] MEDS: ZOCOR 20MG PO (14:04)
[2018-04-20] MEDS: Maxzide-25MG Tablet PO (14:04)
[2018-04-20] MEDS: Lopressor 25MG Tab PO ×2 (14:04→22:53)
[2018-04-20] MEDS: VITAMIN D PO (14:10)
[2018-04-20] MEDS: Sodium Chloride 0.9% 10 ML FLUSH Syringe IV ×2 (14:11→20:13)
[2018-04-20] MEDS: Klor Con 10 MEQ PO (14:11)
[2018-04-20 14:16] LABS: TROPONIN < 0.012 ng/mL (0.000-0.034)
[2018-04-20] MEDS: Vitamin B-12 500 MCG PO (14:24)
[2018-04-20 18:03] LABS: TROPONIN < 0.012 ng/mL (0.000-0.034)
[2018-04-20 22:06] LABS: TROPONIN < 0.012 ng/mL (0.000-0.034)
[2018-04-21 06:08] LABS: Cholesterol 105 mg/dL (50-200); HDL CHOLESTEROL 53 mg/dL (40-60); TRIGLYCERIDE 66 mg/dL (30-150)
[2018-04-21 06:11] LABS: LDL, DIRECT < 30 mg/dL (30-100)
[2018-04-21] MEDS: Sodium Chloride 0.9% 10 ML FLUSH Syringe IV (06:30)
[2018-04-21] MEDS ORDERED: Maxzide 25MG PO (10:00)
[2018-04-21] MEDS ORDERED: ERGOCALCIFEROL 2000 UNIT PO (10:00)
[2018-04-21] MEDS ORDERED: NON-FORMULARY ITEM (Cyanocobalamin (Vitamin B-12) [Vitamin B-12] 1,000 MCG) PO (10:00)
[2018-04-21] MEDS ORDERED: NON-FORMULARY ITEM (Potassium Chloride 20 Meq [Klor-Con 20 Meq] 20 MEQ) PO (10:00)
[2018-04-21] MEDS ORDERED: NON-FORMULARY ITEM (Atorvastatin Calcium [Lipitor] 20 MG) PO (10:00)
== END 2018-04-21 10:23 | disposition home or self-care (01) ==
LOC: ED 03:12 → MED SURG 08:26
CPT/HCPCS: 36415; 71045; 71260; 80053; 80061; 82150; 82550; 83690; 83721; 83735; 83880; 84484; 85025; 85379; 85610; 85730; 93005; 99285; J1170; J1642

== ENCOUNTER 2023-03-02 07:41 | Day surgery (SDC) | payer MEDICARE ==
[~2023-03-02 07:41] MED LIST changes: +Ak-Dilate OPHTHALMIC*** 1.065 ML, Cyclogyl 1% OPHTH SOL 1.065 ML, GATIFLOXACIN 0.5% OPH... OP ONE; +BETADINE 5% OPHTHALMIC 30 ML OP ONE; -Hydromorphone 1 mg/ml Ampule; +Lactated Ringers 1,000 ML IV SCH; +NON-FORMULARY ITEM OP ONE; -Sodium Chloride 0.9% 1000 ML 1,000 ML; +TETRACAINE 0.5% STERI-UNIT SOL OP ONE; +cefUROXime sodium 0.005 GM in Sodium Chloride Flush 30 ML*** 0.5 ML IJ ONE
[2023-03-02] MEDS ORDERED: Epinephrine Preservative Free 1 MG/ML IJ ONE (07:42)
[2023-03-02] MEDS ORDERED: Lactated Ringers 1,000 ML IV ONE (08:03)
[2023-03-02] MEDS ORDERED: Zofran 4 MG/2 ML VIAL IV PRN (09:00)
[2023-03-02] MEDS ORDERED: ACETAZOLAMIDE 250 MG TABLET PO ONE (09:00)
[2023-03-02] MEDS ORDERED: DIPRIVAN 200 MG/20 ML IV ONE ×2 (10:53→11:05)
[2023-03-02 11:25] VITALS: O2SAT 93
[2023-03-02 11:28] VITALS: BP 119/71; PULSE 71
== END 2023-03-02 11:41 | disposition home or self-care (01) ==
LOC: SDC 07:41
PROVIDERS: ATTEND Ophthalmology
DX: H25.811 Combined forms of age-related cataract, right eye (principal); I10 Essential (primary) hypertension
CPT/HCPCS: 93005; C1780; J0171; J2704; A9270-GY

== ENCOUNTER 2023-03-30 07:44 | Day surgery (SDC) | payer MEDICARE ==
[2023-03-30] MEDS ORDERED: Lactated Ringers 1,000 ML IV ONE (08:26)
[2023-03-30] MEDS ORDERED: ACETAZOLAMIDE 250 MG TABLET PO ONE (09:30)
[2023-03-30] MEDS ORDERED: Zofran 4 MG/2 ML VIAL IV PRN (09:30)
[2023-03-30] MEDS ORDERED: DIPRIVAN 200 MG/20 ML IV ONE (10:57)
[2023-03-30 11:10] VITALS: RESP 16
[2023-03-30 11:22] VITALS: BP 150/96; PULSE 62; O2SAT 92
[2023-03-30 11:34] VITALS: TEMP 97.2
[2023-03-30] MEDS ORDERED: Epinephrine Preservative Free 1 MG/ML ONE (15:06)
== END 2023-03-30 11:29 | disposition home or self-care (01) ==
LOC: SDC 07:44
PROVIDERS: ATTEND Ophthalmology
DX: H25.812 Combined forms of age-related cataract, left eye (principal)
CPT/HCPCS: 99100; C1780; J0171; J2704; A9270-GY

== ENCOUNTER 2023-09-13 05:59 | Day surgery (SDC) | payer MEDICARE ==
[2023-09-13] MEDS ORDERED: Lactated Ringers 1,000 ML IV SCH (06:30)
[2023-09-13] MEDS ORDERED: Xylocaine-Mpf 2% 5 Ml Vial ONE (07:57)
[2023-09-13] MEDS ORDERED: DIPRIVAN 200 MG/20 ML IV ONE ×2 (07:57→08:19)
[2023-09-13] MEDS ORDERED: ATROPINE SULFATE 1MG ONE (08:17)
[2023-09-13 09:41] VITALS: BP 159/90; PULSE 79; RESP 18; TEMP 97.3; O2SAT 95
--- NOTE | 2023-09-13 13:21 | OP ---
SURGERY DATE/TIME: 09/13/2023 0800 PREOPERATIVE DIAGNOSIS: History of colon cancer and abnormal CT scan. POSTOPERATIVE DIAGNOSES: 1) Two small polyps one in the transverse and one in the descending colon which were biopsied using cold forceps biopsy. 2) The patient also had some sigmoid diverticulosis and otherwise apparently normal appearance of the [id number] anastomosis from previous removal of the right colon. PROCEDURE: Colonoscopy. SURGEON: Dr. Woody. ANESTHESIA: Medications given by anesthesia department. HISTORY: The patient is a 73-year-old white female who had colon cancer diagnosed six years ago. She has not had follow up since that time. They had done a recent CT scan which was somewhat worrisome from its appearance according to her oncologist. The patient was felt to have reinvestigation. The patient was appraised of the risks of the procedure including the risk of perforation, phlebitis, untoward reaction to medication, bleeding and missed lesions. The patient verbalized her understanding and desired to have the procedure performed. DESCRIPTION OF PROCEDURE: The patient was given the medications by the anesthesia department. She had continuous pulse oximetry, ECG monitoring and intermittent blood pressure monitoring during the examination. She was placed in the left lateral decubitus position. A digital rectal examination was performed and revealed normal anal sphincter tone and no masses. The flexible Olympus pediatric colonoscope was used to intubate the rectum. A view of the colon was developed sequentially to the area of the previous anastomosis which appeared to be good. There were a couple of polyps noted one in the transverse and one in the descending colon which were destroyed using cold forceps biopsy instrument. No other mucosal lesions being noted other than sigmoid diverticulosis. The scope was removed from the patient who tolerated the procedure well and was sent back to OP recovery in good condition. The prep was noted to be fair to fair to good.
== END 2023-09-13 09:35 | disposition home or self-care (01) ==
LOC: SDC 05:59
PROVIDERS: ATTEND Family Medicine
DX: Z08 Encounter for follow-up examination after completed treatment for malignant neoplasm (principal); Z85.038 Personal history of other malignant neoplasm of large intestine; R93.89 Abnormal findings on diagnostic imaging of other specified body structures; K57.30 Diverticulosis of large intestine without perforation or abscess without bleeding; D12.4 Benign neoplasm of descending colon; D12.3 Benign neoplasm of transverse colon
CPT/HCPCS: 93005; 99100; J0461; J1642; J2704

== ENCOUNTER 2024-04-11 12:48 | Emergency (ER) | payer MEDICARE, OTHER ==
[2024-04-11 13:01] VITALS: TEMP 98.9
[2024-04-11] MEDS ORDERED: ARZOL Silver Nitrate Applicator TP ONE (14:21)
[2024-04-11] MEDS: ARZOL Silver Nitrate Applicator TP ONE (14:26)
[2024-04-11] MEDS: TRANEXAMIC ACID 1000 MG/10 ML INTRANASAL ONE (14:37)
[2024-04-11] MEDS ORDERED: TRANEXAMIC ACID 1000 MG/10 ML ONE (14:37)
[2024-04-11 15:18] VITALS: O2SAT 91
--- NOTE | 2024-04-11 16:08 | ERPHSYRPT ---
- History of Present Illness Time Seen by Provider: 04/11/24 13:10 Source: patient Exam Limitations: no limitations Patient Subjective Stated Complaint: Pt states "I have had this nose bleed for the past half hour and it is just pouring out of the right side." Triage Nursing Assessment: Pt presented alert and oriented X 3, skin wpd. TP ambulates with an upright steady gait, able to speak in clear full sentences. Pt resting comfortably on the bed with a clamp on her right nose. Physician History: 74-year-old female presents the emergency department for evaluation of a spontaneous right nostril nosebleed. Patient unable to stop it at home. No blunt trauma no fever patient denies picking her nose. No recent procedures. Patient is not on blood thinners other than baby aspirin daily. Patient otherwise asymptomatic. She denies pain. Patient denies history of nosebleeds. Patient voices no other complaints or concerns at this time. Portions of this note were created with voice recognition technology. There may be grammatical, spelling, punctuation or sound alike errors Timing/Duration: today Severity: moderate Modifying Factors: Improves With: nothing Associated Symptoms: denies symptoms Allergies/Adverse Reactions: morphine Allergy (Severe, Verified 09/07/23 14:55) throat swelling oxaliplatin Allergy (Severe, Verified 09/07/23 14:55) Anaphylactic Reaction Home Medications: Aspirin 162 mg PO DAILY 05/27/16 [History] Metoprolol Tartrate 25 mg [Lopressor 25MG Tab] 25 mg PO DAILY 02/04/18 [History] Triamterene/Hydrochlorothiazid [Maxzide 37.5 mg-25 mg Tablet] 1 tab PO DAILY 04/21/18 [History] Docusate Sodium 100 mg PO DAILY 02/23/23 [History] Gabapentin 300 mg PO BID 02/23/23 [History] Isosorbide Dinitrate 30 mg PO DAILY 02/23/23 [History] Multivitamin 1 each PO DAILY 02/23/23 [History] Pravastatin Sodium 20 mg PO DAILY 02/23/23 [History] Levothyroxine Sodium 50 Mcg [Synthroid 50 Mcg] 50 mcg PO DAILY 03/02/23 [History] Latanoprost 1 drop OP DAILY 09/07/23 [History] Hx Tetanus, Diphtheria Vaccination/Date Given: Yes (unknown) Hx Influenza Vaccination/Date Given: No Hx Pneumococcal Vaccination/Date Given: No Immunizations Up to Date: No Travel Risk - International Travel Have you traveled outside of the country in past 3 weeks: No - Emerging Infectious Disease Are you exhibiting symptoms associated with any current EIDs: No - Review of Systems Constitutional: No Symptoms, No Fever, No Chills Eyes: No Symptoms Ears, Nose, & Throat: No Symptoms Respiratory: No Symptoms, No Cough, No Dyspnea Cardiac: No Symptoms, No Chest Pain, No Edema, No Syncope Abdominal/Gastrointestinal: No Symptoms, No Abdominal Pain, No Nausea, No Vomiting, No Diarrhea Genitourinary Symptoms: No Symptoms, No Dysuria Musculoskeletal: No Symptoms, No Back Pain, No Neck Pain Skin: No Symptoms, No Rash Neurological: No Symptoms, No Dizziness, No Focal Weakness, No Sensory Changes Psychological: No Symptoms Endocrine: No Symptoms Hematologic/Lymphatic: No Symptoms Immunological/Allergic: No Symptoms All Other Systems: Reviewed and Negative - Past Medical History Pertinent Past Medical History: Yes Neurological History: No Pertinent History ENT History: Cataracts Cardiac History: Coronary Artery Disease, High Cholesterol, Hypertension Respiratory History: COPD, Sleep Apnea, Other Endocrine Medical History: No Pertinent History Musculoskeletal History: Degenerative Disk Disease, Osteoarthritis GI Medical History: Colorectal Cancer, Other History: No Pertinent History Psycho-Social History: No Pertinent History Female Reproductive Disorders: Fibroids Other Medical History: Sleep apnea with CPAP. Current every day smoker.colon resection. - Past Surgical History Past Surgical History: Yes Neuro Surgical History: No Pertinent History Cardiac: Cardiac Catheterization, Cardiac Stent Respiratory: No Pertinent History Gastrointestinal: Bowel Surgery, Cholecystectomy Genitourinary: No Pertinent History Musculoskeletal: No Pertinent History Female Surgical History: Hysterectomy Other Surgical History: sleep apnea colonoscopy, port placement x2 - Social History Smoking Status: Current every day smoker How long have you smoked: 50 years Exposure to second hand smoke: No Drug Use: none Patient Lives Alone: No - Social Determinants of Health Will the patient participate in the screening: Yes Do you worry about a steady place to live?: No Do you have any problems with any of the following?: No known problems In the past 12 months,have you had to go without utilities?: No Transportation Issues: No Has anyone in your support network made you feel unsafe?: No Have you or anyone in your house had to go without enough: No - Nursing Vital Signs Nursing Vital Signs: Initial Vital Signs Temperature 98.9 F 04/11/24 12:54 Pulse Rate 94 H 04/11/24 12:54 Respiratory Rate 20 04/11/24 12:54 Blood Pressure 118/82 04/11/24 12:54 O2 Sat by Pulse Oximetry 94 L 04/11/24 12:54 Pain Scale Pain Intensity 0 - Physical Exam General Appearance: no apparent distress, alert Eye Exam: PERRL/EOMI, eyes nml inspection Ears, Nose, Throat Exam: normal ENT inspection, TMs normal, pharynx normal, moist mucous membranes, other (Epistaxis right nostril) Neck Exam: normal inspection, non-tender, supple, full range of motion Respiratory Exam: normal breath sounds, lungs clear, airway intact, No respiratory distress Cardiovascular Exam: regular rate/rhythm, normal heart sounds, normal peripheral pulses Gastrointestinal/Abdomen Exam: soft, normal bowel sounds, No tenderness, No mass Back Exam: normal inspection, normal range of motion, No CVA tenderness, No vertebral tenderness Extremity Exam: normal inspection, normal range of motion, pelvis stable Neurologic Exam: alert, oriented x 3, cooperative, normal mood/affect, nml cerebellar function, nml station & gait, sensation nml, No motor deficits Skin Exam: normal color, warm, dry, No rash Lymphatic Exam: No adenopathy SpO2 Interpretation: normal SpO2: 91 O2 Delivery: Room Air - Course Nursing assessment & vital signs reviewed: Yes Ordered Tests: Medication Summary Discontinued Medications Generic Name Dose Route Start Last Admin Trade Name Mayuri PRN Reason Stop Dose Admin Silver Nitrate Confirm 04/11/24 14:21 Silver Nitrate 1 Pkt Each Administered 04/11/24 14:22 Dose 1 pkt TP .STK-MED ONE Silver Nitrate 1 pkt 04/11/24 14:24 04/11/24 14:26 Silver Nitrate 1 Pkt Each TP 04/11/24 14:25 1 pkt NOW ONE Administration Tranexamic Acid 1,000 mg 04/11/24 14:45 04/11/24 14:37 Tranexamic Acid 1000 Mg/10 Ml Vial/Amp INTRANASAL 04/11/24 14:46 1,000 mg ONCE ONE Administration Tranexamic Acid Confirm 04/11/24 14:37 Tranexamic Acid 1000 Mg/10 Ml Vial/Amp Administered 04/11/24 14:38 Dose 1,000 mg .ROUTE .STLieferheld-MED ONE - Progress Progress: improved Progress Note: 74-year-old female presents to our ED for evaluation and treatment of spon taneous nosebleed. Epistaxis primarily from the right nostril. We tried nasal clamp initially. Bleeding improved after about half hour or so. Nasal clamp was removed and bleeding reoccurred. Bleeding was localized. Silver nitrate used to cauterize. However this was also unsuccessful. Bleeding improved but did not completely resolved. TXA soaked gauze was then used to stop the bleeding. Bleeding stopped temporarily. However during the observation period the bleeding reoccurred. TXA soaked gauze was then placed approximately half hour. Rhino Rocket placed. Bleeding resolved. Antibiotic prescription provided. Patient received a prescription for Keflex. Patient agrees to follow-up with her ENT physician within 48 hours for reevaluation. Patient referred to the ENT group at [facility] Portions of this note were created with voice recognition technology. There may be grammatical, spelling, punctuation or sound alike errors Complexity problem addressed is moderate acute palpable. No critical care time. Complex of data reviewed and analyzed as none. Diagnosis made based on history and physical exam. No specialized testing ordered. Risk of complication or risk of morbidity/mortality patient management is moderate. Rhino Rocket placed. A prescription for Keflex forwarded to patient's pharmacy. Vital stable time spent to discharge patient approximately 20 minutes. Plan of care established for shared decision making. No social determinants of health present to impede follow-up Portions of this note were created with voice recognition technology. There may be grammatical, spelling, punctuation or sound alike errors 04/11/24 16:05 Counseled pt/family regarding: diagnosis, need for follow-up - Departure Departure Disposition: Home Clinical Impression: Epistaxis Condition: Stable Critical Care Time: No Referrals: KEYA RAYMOND [Primary Care Provider] - Follow up/PCP as directed Additional Instructions: Please call the [facility] group today to schedule a follow-up appointment. Please refer to the information packet given to you by our RN Nate Discharge/Care Plan HUSAM GUY DARLIN was seen on 04/11/24 in the Emergency Room. The patient was counseled regarding Diagnosis,Lab results, Imaging studies, need for follow up and when to return to the Emergency Room. Prescriptions given: Discharge Note I have spoken with the patient and/or caregivers. I have explained the patient's condition, diagnosis and treatment plan based on the information available to me at this time. I have answered the patient's and/or caregiver's questions and addressed any concerns. The patient and/or caregivers have as good understanding of the patient's diagnosis, condition and treatment plan as can be expected at this point. The vital signs have been stable. The patient's condition is stable and appropriate for discharge from the emergency department. The patient will pursue further outpatient evaluation with the primary care physician or other designated or consulting physician as outlined in the discharge instructions. The patient and/or caregivers are agreeable to this plan of care and follow-up instructions have been explained in detail. The patient and/or caregivers have received these instruction. The patient/and or caregivers are aware that any significant change in condition or worsening of symptoms should prompt an immediate return to this or the closest emergency department or call 911. Prescriptions: Cephalexin Mh 500 mg [Keflex 500 mg] 500 mg PO TID 21 Days #7 cap
[2024-04-11 16:26] VITALS: BP 128/75; PULSE 68; RESP 18
== END 2024-04-11 16:52 | disposition home or self-care (01) ==
LOC: ED 12:48
DX: R04.0 Epistaxis (principal); E78.5 Hyperlipidemia, unspecified; I10 Essential (primary) hypertension; Z79.899 Other long term (current) drug therapy; Z72.0 Tobacco use
CPT/HCPCS: 30901; 99282; A9270-GY

== ENCOUNTER 2024-04-11 17:56 | Emergency (ER) | payer MEDICARE, OTHER ==
[2024-04-11 18:06] VITALS: TEMP 97.1
[2024-04-11 19:03] VITALS: BP 148/80; PULSE 64; RESP 18; O2SAT 98
--- NOTE | 2024-04-11 19:56 | ERPHSYRPT ---
- History of Present Illness Time Seen by Provider: 04/11/24 18:20 Source: patient Exam Limitations: no limitations Patient Subjective Stated Complaint: Pt states "I almost got home and it started to bleed from the left side." Triage Nursing Assessment: Pt presented alert and oriented X3, skin pwd. Pt ambulates with an upright steady gait, able to speak in clear full sentences. PT has active bleeding noted to left nares, rhino rocket in place in the right. Physician History: 74-year-old female presents to emergency department for evaluation of epistaxis. Patient was just discharged for the same. Patient had epistaxis from the right nare. Rhino Rocket was placed ultimately. Patient went home and observed there was some bleeding coming out of the left nare. There was no bleeding from the left nare initially. It was determined that the bleeding was coming from the right nare posteriorly. The initial Rhino Rocket was small for comfort. However it was determined that a longer Rhino Rocket needed to be placed to control the posterior bleed. The longer posterior Rhino Rocket was placed on the right side. Patient was observed. This resolved the bleeding altogether. Patient ready for discharge. We will maintain the initial plan of patient following up with ENT as an outpatient. Patient will take her antibiotics as discussed. Patient feels well. No active pain. Patient states he is ready for discharge. Portions of this note were created with voice recognition technology. There may be grammatical, spelling, punctuation or sound alike errors Timing/Duration: today Severity: moderate Modifying Factors: Improves With: nothing Associated Symptoms: denies symptoms Allergies/Adverse Reactions: morphine Allergy (Severe, Verified 09/07/23 14:55) throat swelling oxaliplatin Allergy (Severe, Verified 09/07/23 14:55) Anaphylactic Reaction Home Medications: Aspirin 162 mg PO DAILY 05/27/16 [History] Metoprolol Tartrate 25 mg [Lopressor 25MG Tab] 25 mg PO DAILY 02/04/18 [History] Triamterene/Hydrochlorothiazid [Maxzide 37.5 mg-25 mg Tablet] 1 tab PO DAILY 04/21/18 [History] Docusate Sodium 100 mg PO DAILY 02/23/23 [History] Gabapentin 300 mg PO BID 02/23/23 [History] Isosorbide Dinitrate 30 mg PO DAILY 02/23/23 [History] Multivitamin 1 each PO DAILY 02/23/23 [History] Pravastatin Sodium 20 mg PO DAILY 02/23/23 [History] Levothyroxine Sodium 50 Mcg [Synthroid 50 Mcg] 50 mcg PO DAILY 03/02/23 [History] Latanoprost 1 drop OP DAILY 09/07/23 [History] Hx Tetanus, Diphtheria Vaccination/Date Given: Yes (unknown) Hx Influenza Vaccination/Date Given: No Hx Pneumococcal Vaccination/Date Given: No Immunizations Up to Date: No Travel Risk - International Travel Have you traveled outside of the country in past 3 weeks: No - Emerging Infectious Disease Are you exhibiting symptoms associated with any current EIDs: No - Review of Systems Constitutional: No Symptoms, No Fever, No Chills Eyes: No Symptoms Ears, Nose, & Throat: No Symptoms Respiratory: No Symptoms, No Cough, No Dyspnea Cardiac: No Symptoms, No Chest Pain, No Edema, No Syncope Abdominal/Gastrointestinal: No Symptoms, No Abdominal Pain, No Nausea, No Vomiting, No Diarrhea Genitourinary Symptoms: No Symptoms, No Dysuria Musculoskeletal: No Symptoms, No Back Pain, No Neck Pain Skin: No Symptoms, No Rash Neurological: No Symptoms, No Dizziness, No Focal Weakness, No Sensory Changes Psychological: No Symptoms Endocrine: No Symptoms All Other Systems: Reviewed and Negative - Past Medical History Pertinent Past Medical History: Yes Neurological History: No Pertinent History ENT History: Cataracts Cardiac History: Coronary Artery Disease, High Cholesterol, Hypertension Respiratory History: COPD, Sleep Apnea, Other Endocrine Medical History: No Pertinent History Musculoskeletal History: Degenerative Disk Disease, Osteoarthritis GI Medical History: Colorectal Cancer, Other History: No Pertinent History Psycho-Social History: No Pertinent History Female Reproductive Disorders: Fibroids Other Medical History: Sleep apnea with CPAP. Current every day smoker.colon resection. - Past Surgical History Past Surgical History: Yes Neuro Surgical History: No Pertinent History Cardiac: Cardiac Catheterization, Cardiac Stent Respiratory: No Pertinent History Gastrointestinal: Bowel Surgery, Cholecystectomy Genitourinary: No Pertinent History Musculoskeletal: No Pertinent History Female Surgical History: Hysterectomy Other Surgical History: sleep apnea colonoscopy, port placement x2 - Social History Smoking Status: Current every day smoker How long have you smoked: 50 years Exposure to second hand smoke: No Drug Use: none Patient Lives Alone: No - Social Determinants of Health Will the patient participate in the screening: Yes Do you worry about a steady place to live?: No Do you have any problems with any of the following?: No known problems In the past 12 months,have you had to go without utilities?: No Transportation Issues: No Has anyone in your support network made you feel unsafe?: No Have you or anyone in your house had to go without enough: No - Nursing Vital Signs Nursing Vital Signs: Initial Vital Signs Temperature 97.1 F 04/11/24 18:02 Pulse Rate 78 04/11/24 18:02 Respiratory Rate 20 04/11/24 18:02 O2 Sat by Pulse Oximetry 97 04/11/24 18:02 Pain Scale Pain Intensity 2 - Physical Exam General Appearance: no apparent distress, alert Eye Exam: PERRL/EOMI, eyes nml inspection Ears, Nose, Throat Exam: normal ENT inspection, TMs normal, pharynx normal, moist mucous membranes Neck Exam: normal inspection, non-tender, supple, full range of motion Respiratory Exam: normal breath sounds, lungs clear, airway intact, No respiratory distress Cardiovascular Exam: regular rate/rhythm, normal heart sounds, normal peripheral pulses Gastrointestinal/Abdomen Exam: soft, normal bowel sounds, No tenderness, No mass Back Exam: normal inspection, normal range of motion, No CVA tenderness, No vertebral tenderness Extremity Exam: normal inspection, normal range of motion, pelvis stable Neurologic Exam: alert, oriented x 3, cooperative, normal mood/affect, sensation nml, No motor deficits Skin Exam: normal color, warm, dry, No rash Lymphatic Exam: No adenopathy SpO2 Interpretation: normal SpO2: 98 O2 Delivery: Room Air - Course Nursing assessment & vital signs reviewed: Yes - Progress Progress: improved Progress Note: 74-year-old female presents to our ED for the second time for epistaxis. Patient was seen earlier today for epistaxis to the right nostril. Patient states she observed some bleeding through the left nostril. The Rhino Rocket that was placed earlier was removed and replaced with a slightly longer version. This resolved the bleeding completely. Patient has antibiotics forwarded to her pharmacy. She was given ENT follow-up with services at [facility]. Vital stable. Patient voices no other complaints or concerns at this time. Portions of this note were created with voice recognition technology. There may be grammatical, spelling, punctuation or sound alike errors Complexity problem addressed is moderate acute complicated. No critical care time. Complex of data reviewed and analyzed is none. No specialized testing ordered. Diagnosis made based on history and physical exam. Risk of complication and or risk of morbidity/mortality patient management is moderate. Vital stable. Time spent to discharge patient approximately 15 minutes. Plan of care established for shared decision making. No social determinants of health present to impede follow-up. Portions of this note were created with voice recognition technology. There may be grammatical, spelling, punctuation or sound alike errors 04/11/24 19:54 Counseled pt/family regarding: diagnosis, need for follow-up - Departure Departure Disposition: Home Clinical Impression: Epistaxis Condition: Stable Critical Care Time: No Referrals: KEYA RAYMOND [Primary Care Provider] - Follow up/PCP as directed Additional Instructions: Discharge/Care Plan BROOKSHUSAM SAEED was seen on 04/11/24 in the Emergency Room. The patient was counseled regarding Diagnosis,Lab results, Imaging studies, need for follow up and when to return to the Emergency Room. Prescriptions given: Discharge Note I have spoken with the patient and/or caregivers. I have explained the patient's condition, diagnosis and treatment plan based on the information available to me at this time. I have answered the patient's and/or caregiver's questions and addressed any concerns. The patient and/or caregivers have as good understanding of the patient's diagnosis, condition and treatment plan as can be expected at this point. The vital signs have been stable. The patient's condition is stable and appropriate for discharge from the emergency department. The patient will pursue further outpatient evaluation with the primary care physician or other designated or consulting physician as outlined in the discharge instructions. The patient and/or caregivers are agreeable to this plan of care and follow-up instructions have been explained in detail. The patient and/or caregivers have received these instruction. The patient/and or caregivers are aware that any significant change in condition or worsening of symptoms should prompt an immediate return to this or the closest emergency department or call 911.
== END 2024-04-11 19:51 | disposition home or self-care (01) ==
LOC: ED 17:56
DX: R04.0 Epistaxis (principal); E78.5 Hyperlipidemia, unspecified; I10 Essential (primary) hypertension; Z79.899 Other long term (current) drug therapy; Z72.0 Tobacco use
CPT/HCPCS: 30901; 99281

== ENCOUNTER 2024-08-12 05:06 | Emergency (ER) | payer MEDICARE, OTHER ==
[2024-08-12] MEDS ORDERED: NEOSYNEPHRINE 0.5% NASAL SPRAY/DROPS ONE (05:39)
[2024-08-12] MEDS: NEOSYNEPHRINE 0.5% NASAL SPRAY/DROPS NS ONE (05:41)
[2024-08-12 05:55] VITALS: RESP 95; TEMP 97
--- NOTE | 2024-08-12 05:58 | ERPHSYRPT ---
- History of Present Illness Time Seen by Provider: 08/12/24 05:30 Source: patient, family Exam Limitations: no limitations Patient Subjective Stated Complaint: pt states she began to have a nose bleed 45 minutes prior to coming in Triage Nursing Assessment: pt ambulated into the er; pt is axo x4; c/o nose bleed; pt denies pain; active bleeding present to rt nare; minimal bleeding present; skin PDW; no respiratory distress present; hypertensive; nose clap placed during time of assessment Physician History: This is an obese 74-year-old white female patient of Dr. Woody who presents with right nostril epistaxis. She had a similar episode on 04/11/2024 requiring a Rhino Rocket. She is requesting that we try not to place a Rhino Rocket in. She states it was very uncomfortable/miserable. Throughout the day yesterday, 08/11/2024, patient noticed intermittent pink tinge discharge from the right nostril. She denies trauma. She is not on any anticoagulation therapy. She does take a baby aspirin a day. She has no bleeding or clotting disorders. However, approximately 45 minutes prior to arrival she had sudden increase in bleeding from the right nostril only. With pressure, there has been significant improvement. Patient arrives to the emergency department with clotting visible in the nostril. The patient is a daily smoker of tobacco cigarettes. Patient has a history of hypertension, hyperlipidemia, hypothyroidism, coronary artery disease (cardiac stent), COPD, CPAP use (no nasal cannula oxygen) and degenerative disc disease Timing/Duration: intermittent, this morning (Sudden increase 45 minutes prior to arrival right nostril) Severity: mild ENT Location: nose (Right nostril) Prearrival Treatment: squeezing nostrils Modifying Factors: Improves With: nothing Associated Symptoms: epistaxis (Right nostril) Allergies/Adverse Reactions: morphine Allergy (Severe, Verified 08/12/24 05:12) throat swelling oxaliplatin Allergy (Severe, Verified 08/12/24 05:12) Anaphylactic Reaction Home Medications: Aspirin 162 mg PO DAILY 05/27/16 [History] Metoprolol Tartrate 25 mg [Lopressor 25MG Tab] 25 mg PO DAILY 02/04/18 [History] Triamterene/Hydrochlorothiazid [Maxzide 37.5 mg-25 mg Tablet] 1 tab PO DAILY 04/21/18 [History] Docusate Sodium 100 mg PO DAILY 02/23/23 [History] Gabapentin 300 mg PO BID 02/23/23 [History] Isosorbide Dinitrate 30 mg PO DAILY 02/23/23 [History] Multivitamin 1 each PO DAILY 02/23/23 [History] Pravastatin Sodium 20 mg PO DAILY 02/23/23 [History] Levothyroxine Sodium 50 Mcg [Synthroid 50 Mcg] 50 mcg PO DAILY 03/02/23 [History] Latanoprost 1 drop OP DAILY 09/07/23 [History] Hx Tetanus, Diphtheria Vaccination/Date Given: No (unknown) Hx Influenza Vaccination/Date Given: No Hx Pneumococcal Vaccination/Date Given: No Travel Risk - International Travel Have you traveled outside of the country in past 3 weeks: No - Emerging Infectious Disease Are you exhibiting symptoms associated with any current EIDs: No - Review of Systems Constitutional: No Symptoms Eyes: No Symptoms Ears, Nose, & Throat: Epistaxis (Right nostril) Respiratory: No Symptoms Cardiac: No Symptoms Abdominal/Gastrointestinal: No Symptoms Genitourinary Symptoms: No Symptoms Musculoskeletal: No Symptoms Skin: No Symptoms Neurological: No Symptoms Psychological: No Symptoms Endocrine: No Symptoms Hematologic/Lymphatic: No Symptoms Immunological/Allergic: No Symptoms All Other Systems: Reviewed and Negative - Past Medical History Pertinent Past Medical History: Yes Neurological History: No Pertinent History ENT History: Cataracts Cardiac History: Coronary Artery Disease, High Cholesterol, Hypertension Respiratory History: COPD, Sleep Apnea, Other Endocrine Medical History: No Pertinent History Musculoskeletal History: Degenerative Disk Disease, Osteoarthritis GI Medical History: Colorectal Cancer, Other History: No Pertinent History Psycho-Social History: No Pertinent History Female Reproductive Disorders: Fibroids Other Medical History: Sleep apnea with CPAP. Current every day smoker.colon resection. - Past Surgical History Past Surgical History: Yes Neuro Surgical History: No Pertinent History Cardiac: Cardiac Catheterization, Cardiac Stent Respiratory: No Pertinent History Gastrointestinal: Bowel Surgery, Cholecystectomy Genitourinary: No Pertinent History Musculoskeletal: No Pertinent History Female Surgical History: Hysterectomy Other Surgical History: sleep apnea colonoscopy, port placement x2 - Social History Smoking Status: Current every day smoker How long have you smoked: 50 years Exposure to second hand smoke: No Drug Use: none Patient Lives Alone: No - Social Determinants of Health Will the patient participate in the screening: Yes Do you worry about a steady place to live?: No Do you have any problems with any of the following?: No known problems In the past 12 months,have you had to go without utilities?: No Transportation Issues: No Has anyone in your support network made you feel unsafe?: No Have you or anyone in your house had to go without enough: No - Nursing Vital Signs Nursing Vital Signs: Initial Vital Signs Pulse Rate 83 08/12/24 05:12 Blood Pressure 156/98 08/12/24 05:12 O2 Sat by Pulse Oximetry 95 08/12/24 05:12 Pain Scale Pain Intensity 0 - Physical Exam General Appearance: no apparent distress, alert, anxiety, obese Eye Exam: bilateral eye: normal inspection, PERRL, EOMI Ear Exam: bilateral ear: auricle normal Nasal Exam: dried blood (With blood clot right nostril), No active bleeding Throat Exam: normal, pharynx normal Neck Exam: normal inspection, non-tender, supple, full range of motion Cardiovascular/Respiratory Exam: chest non-tender, no respiratory distress Abdominal Exam: non-tender Neurologic Exam: alert, oriented x 3, cooperative, eyelet punch operator II-XII nml as tested, nml cerebellar function, nml station & gait, sensation nml Skin Exam: normal color, warm, dry SpO2 Interpretation: normal SpO2: 95 O2 Delivery: Room Air - Course Nursing assessment & vital signs reviewed: Yes Ordered Tests: Medication Summary Discontinued Medications Generic Name Dose Route Start Last Admin Trade Name Mayuri PRN Reason Stop Dose Admin Phenylephrine HCl 15 ml 08/12/24 05:38 08/12/24 05:41 Neosynephrine 0.5% Nasal [place]/Drops NS 08/12/24 05:39 15 ml STAT ONE Administration Phenylephrine HCl Confirm 08/12/24 05:39 Neosynephrine 0.5% Nasal [place]/Drops Administered 08/12/24 05:40 Dose 15 ml .ROUTE .KeyOwner-MED ONE - Progress Progress: improved Progress Note: 08/12/24 06:08 My medical decision making and the assignment of low complexity to this patient's medical issue today is based on review of the patient's past medical history, review patient's medication list, reviewed patient drug allergy list, h istory present illness and physical findings on examination. The workup in this patient does not currently require laboratory radiographic studies. We will apply the nasal clip after instilling 2 to 3 drops of Cipriano-Synephrine into the right nostril. We will hold this in place for approximately 30 minutes and recheck. Patient is aware we may need to place a Rhino Rocket. Differential diagnosis includes but is not limited to bleeding clotting disorder, epistaxis 08/12/24 06:26 Recheck of patient with the nasal clip in place post Cipriano-Synephrine instillation of the right nostril shows no active bleeding. She is not having any bleeding in her hypopharynx/pharyngeal region. Again, she does not want to have a Rhino Rocket placed. 08/12/24 06:46 Nasal clamp was removed and patient was observed for 20 minutes. No active bleeding. No blood clots in the hypopharyngeal/pharyngeal region. Patient wants to go home and does not want a Rhino Rocket. Counseled pt/family regarding: diagnosis, need for follow-up Medical Desision Making - Independent Historian Additional History obtained from: Family - Departure Departure Disposition: Home Clinical Impression: Epistaxis Condition: Stable Critical Care Time: No Referrals: KEYA WOODY [Primary Care Provider] - Follow up/PCP as directed Additional Instructions: You may use the Cipriano-Synephrine nasal drops every [address] 2 to 3 drops in the right nostril followed by 30 minutes of nasal clamping with the clamp provided you. If you are bleeding resumes you have the option of returning to our facility and likely have a Rhino Rocket placed. Another option is to proceed to [facility] emergency department where there is typically an senior research engineer on-call. There is the possibility of you being seen by senior research engineer through the emergency department there and have their specialty management. It is possible that you will still need a Rhino Rocket placed temporarily and be seen by senior research engineer as an outpatient. Avoid blowing your nose. Avoid trauma.
[2024-08-12 06:38] VITALS: BP 105/82; PULSE 70
[2024-08-12 06:49] VITALS: O2SAT 95
== END 2024-08-12 06:55 | disposition home or self-care (01) ==
LOC: ED 05:06
DX: R04.0 Epistaxis (principal); Z79.82 Long term (current) use of aspirin
CPT/HCPCS: 99281; A9270-GY